=== PATIENT | male | born 1970 | race Caucasian/White ===

== ENCOUNTER 2023-09-10 15:34 | Day surgery (SDC) | payer SELFPAY ==
[~2023-09-10] VITALS: Ht 177.8 cm; Wt 143.1 kg
[2023-09-10 16:48] VITALS: BP 125/65; PULSE 75; TEMP 98.7
[2023-09-10] MEDS ORDERED: OMEGA-31 SGL PO (16:54)
[2023-09-10] MEDS ORDERED: ROXICODONE 55 MG/TAB PO (16:54)
[2023-09-10] MEDS ORDERED: TURMERIC500 MG PO (16:57)
[2023-09-10] MEDS ORDERED: CARDIZEM 60MG T60 MG PO (16:58)
[2023-09-10] MEDS ORDERED: MULTIPLE VITAMI1 TA5 PO (16:58)
[2023-09-10] MEDS ORDERED: NORVASC 5MG5 MG/TAB PO (17:08)
[2023-09-10] MEDS ORDERED: ZESTRIL 20MG TA20 MG PO (17:10)
[2023-09-10] MEDS ORDERED: FLOMAX 0.40.4 MG/CAP (17:11)
--- NOTE | 2023-09-10 17:19 | NUR ---
1559 Patient ambulatory to bay with steady gait, breathing even and unlabored. Pt is alert and oriented, accompanied by his . Consents reviewed and signed by the patient. IV established. LR infusion via gravity at [facility]. Call light in reach. Warm blanket provided.
[2023-09-10] MEDS ORDERED: fentaNYL 50 MCG/ML 2 ML VIAL ONE (18:05)
[2023-09-10] MEDS ORDERED: Ondansetron 4 MG/2 ML VIAL ONE (18:06)
[2023-09-10] MEDS ORDERED: NS 20 ML IV ONE (18:06)
[2023-09-10] MEDS ORDERED: dexAMETHasone 10 MG/ML VIAL ONE (18:06)
[2023-09-10] MEDS ORDERED: Glycopyrrolate 0.2 MG/ML 1 ML VIAL ONE (18:06)
[2023-09-10] MEDS ORDERED: Ketorolac 30 MG/ML VIAL ONE (18:06)
[2023-09-10] MEDS ORDERED: Lidocaine PF 2% (20 MG/ML) 5 ML VIAL ONE (18:07)
[2023-09-10] MEDS ORDERED: HYDROmorphone 1 MG/1 ML SYRINGE [PACU/SDC ONLY] IV PRN (18:15)
[2023-09-10] MEDS ORDERED: droPERidol 2.5 MG/ML 2 ML VIAL IV PRN (18:15)
[2023-09-10] MEDS ORDERED: hydrALAZINE 20 MG/ML 1 ML VIAL IV PRN (18:15)
[2023-09-10] MEDS ORDERED: Ondansetron 4 MG/2 ML VIAL IV PRN ×2 (18:15→18:45)
[2023-09-10] MEDS ORDERED: LR 1,000 ML IV SCH (18:15)
[2023-09-10] MEDS ORDERED: fentaNYL 50 MCG/ML 1 ML SYRINGE/VIAL [PACU/SDC ONLY] IV PRN (18:15)
[2023-09-10] MEDS ORDERED: NORCO 325 MG-51 TAB PO (18:43)
[2023-09-10] MEDS ORDERED: PYRIDIUM 100MG100 MG PO (18:43)
[2023-09-10] MEDS ORDERED: Hyoscyamine 0.125 MG Sublingual TAB SL PRN (18:45)
[2023-09-10] MEDS ORDERED: Acetaminophen 325 MG TAB PO PRN (18:45)
[2023-09-10] MEDS ORDERED: Naloxone 0.4 MG/ML VIAL IV PRN (18:45)
[2023-09-10] MEDS ORDERED: oxyCODONE 5 MG TAB PO PRN (18:45)
[2023-09-10] MEDS ORDERED: Lidocaine 2% (20 MG/ML) 20 ML UROJET UR ONE (19:36)
[2023-09-10] MEDS ORDERED: Iohexol 350 - 100 ML VIAL URETER-R ONE (19:36)
[2023-09-10] MEDS ORDERED: Acetaminophen 500 MG TAB PO SCH (19:40)
[2023-09-10 20:38] VITALS: BP 117/69; PULSE 78; TEMP 97.6
--- NOTE | 2023-09-10 20:38 | NUR ---
RECEIVED PATIENT FROM PACU, PATIENT'S SPOUSE CAME UP WITH PATIENT. PATIENT DENIES PAIN/NAUSEA. IV FLUIDS INFUSING PER GRAVITY. SEE MEDITECH FOR VS. NO URGE TO VOID.
[2023-09-10 20:45] VITALS: BP 114/70; PULSE 76
[2023-09-10 21:08] VITALS: BP 116/75; PULSE 85
[2023-09-10 21:23] VITALS: BP 116/70; PULSE 73
[2023-09-10 21:30] VITALS: BP 139/77; PULSE 82; TEMP 97.7
--- NOTE | 2023-09-10 21:40 | NUR ---
PATIENT VOIDED WITH NO REPORTED PROBLEMS OR CONCERNS.
--- NOTE | 2023-09-10 21:58 | NUR ---
REVIEWED DISCHARGE INSTRUCTION/PAPERWORK WITH NO FURTHER QUESTIONS FROM PATIENT OR SPOUSE, SEE MEDITECH.
--- NOTE | 2023-09-10 22:05 | NUR ---
DISCHARGE PAPERWORK SIGNED BY PATIENT. PATIENT ESCORTED OFF UNIT PER W/C WITH SPOUSE TO TAKE PATIENT HOME.
== END 2023-09-10 22:05 | disposition home or self-care (01) ==
LOC: SDCO 15:34 → SURG 20:38 → SDCO 22:05
DX: N20.1 Calculus of ureter (principal)
CPT/HCPCS: OP; C1769; C2617; J0690; J1100; J1885; J2405; J2704; J3010; Q9967